=== PATIENT | female | born 1965 | race Caucasian/White ===

== ENCOUNTER 2019-05-03 06:07 | Day surgery (SDC) | payer BC ==
[2019-05-03] MEDS ORDERED: Lactated Ringers 1,000 ML IV SCH (06:30)
[2019-05-03 07:22] LABS: ALBUMIN 3.9 g/dL (3.5-5.0); ALKALINE PHOSPHATASE 73 U/L (38-126); ANION GAP 13.9 MEQ/L (5-15); BLOOD UREA NITROGEN 8 mg/dL (7-17); CHLORIDE 110 mmol/L (98-107); Calcium 9.4 mg/dL (8.4-10.2); Carbon Dioxide 24 mmol/L (22-30); Cholesterol 183 mg/dL (50-200); Creatinine 1 0.53 mg/dL (0.52-1.04); Glucose 100 mg/dL (74-106); HDL CHOLESTEROL 29 mg/dL (40-60); LDL, DIRECT 108 mg/dL (30-100); Potassium 3.9 mmol/L (3.5-5.1); Risk Ratio 6.3; SGOT/AST 24 U/L (14-36); SGPT/ALT 18 U/L (0-35); SODIUM 144 mmol/L (137-145); TRIGLYCERIDE 288 mg/dL (30-150); Total Protein 6.9 g/dL (6.3-8.2)
[2019-05-03] MEDS ORDERED: DIPRIVAN 200 MG/20 ML IV ONE (07:41)
[2019-05-03] MEDS ORDERED: Ketamine HCl 50 MG/ML ONE (07:41)
[2019-05-03 08:56] VITALS: BP 150/95; PULSE 65; O2SAT 97
--- NOTE | 2019-05-03 14:27 | OP ---
SURGERY DATE/TIME: 05/03/2019 0757 PREOPERATIVE DIAGNOSIS: Screening exam. POSTOPERATIVE DIAGNOSIS: Small rectosigmoid polyp and one singular diverticulum in the sigmoid colon. PROCEDURE: Colonoscopy with cold forceps biopsy. SURGEON: Dr. Cervantes. ANESTHESIA: MAC. Medications given by anesthesia department. HISTORY: The patient is a 53 year-old white female presenting now for screening colonoscopy. She was appraised of the risks of the procedure including the risk of perforation, phlebitis, untoward reaction to medication, bleeding and missed lesions. The patient verbalized her understanding and desired to have the procedure performed. DESCRIPTION OF PROCEDURE: The patient was given the medications by the anesthesia department. She had continuous pulse oximetry, ECG monitoring, intermittent blood pressure monitoring and tidal CO2 monitoring during the examination. She was placed in the left lateral decubitus position. A digital rectal examination was performed and revealed normal anal sphincter tone and no masses. The flexible Olympus pediatric colonoscope was used to intubate the rectum. A view of the colon was developed sequentially to the cecum. Upon insertion and withdrawal was noted one singular diverticulum in the sigmoid colon. There was also noted a small polyp in the rectosigmoid colon which was biopsied using cold biopsy technique destroying the lesion. Upon insertion and withdrawal, including a retroflex view in the rectum, no mucosal lesions being encountered the scope was removed from the patient who tolerated the procedure well and was sent back to OP recovery in good condition. The prep was noted to be fair to good.
== END 2019-05-03 09:13 | disposition home or self-care (01) ==
LOC: SDC 06:07
PROVIDERS: ATTEND Family Medicine
DX: Z12.11 Encounter for screening for malignant neoplasm of colon (principal); K63.5 Polyp of colon; D12.8 Benign neoplasm of rectum; Z80.0 Family history of malignant neoplasm of digestive organs; K57.30 Diverticulosis of large intestine without perforation or abscess without bleeding; I10 Essential (primary) hypertension; J44.9 Chronic obstructive pulmonary disease, unspecified; F17.200 Nicotine dependence, unspecified, uncomplicated
CPT/HCPCS: 36415; 80053; 80061; 83721; J2704

== ENCOUNTER 2023-08-14 07:48 | Day surgery (SDC) | payer BC ==
[~2023-08-14 07:48] MED LIST: Sensorcaine 0.25% 10 ML ONE
[2023-08-14] MEDS ORDERED: SUBLIMAZE 100 MCG/2 ML ONE ×3 (08:17→10:29)
[2023-08-14] MEDS ORDERED: Versed 2 MG/2 ML Injection ONE (08:17)
[2023-08-14] MEDS ORDERED: Zemuron 100 MG/10 ML ONE ×2 (08:17→09:42)
[2023-08-14] MEDS ORDERED: DIPRIVAN 200 MG/20 ML IV ONE (08:17)
[2023-08-14] MEDS: Lactated Ringers 1,000 ML IV SCH ×2 (08:30→08:42)
[2023-08-14 08:32] VITALS: RESP 16
[2023-08-14] MEDS ORDERED: MEFOXIN 2 GM PREMIX** 2 GM/50 ML ML IV SCH (09:00)
[2023-08-14 09:21] LABS: ALBUMIN 4.1 g/dL (3.5-5.0); ANION GAP 11.7 MEQ/L (5-15); BILIRUBIN,TOTAL 0.4 mg/dL (0.2-1.3); Calcium 9.3 mg/dL (8.4-10.2); Creatinine 1 0.54 mg/dL (0.52-1.04); EST GLOMERULAR FILTRATION RATE 107.3 ML/MIN; Potassium 4.3 mmol/L (3.5-5.1); Risk Ratio 5.9; Total Protein 7.3 g/dL (6.3-8.2)
[2023-08-14] MEDS ORDERED: Zofran 4 MG/2 ML VIAL ONE (09:48)
[2023-08-14] MEDS ORDERED: BRIDION 200MG/2ML IV ONE (09:48)
[2023-08-14] MEDS ORDERED: Lactated Ringers 1,000 ML IV ONE (09:59)
--- NOTE | 2023-08-14 12:07 | OP ---
SURGERY DATE/TIME: 08/14/202320 PREOPERATIVE DIAGNOSIS: Symptomatic cholelithiasis. POSTOPERATIVE DIAGNOSIS: Symptomatic cholelithiasis. PROCEDURE: Laparoscopic cholecystectomy. SURGEON: Dr. Robert Chung. ANESTHESIA: General endotracheal tube. ESTIMATED BLOOD LOSS: None. DRAINS: None. COMPLICATIONS: None. CONDITION: Stable. INDICATIONS: A patient has symptomatic stone disease. DESCRIPTION OF PROCEDURE AND FINDINGS: Taken to surgery. General anesthetic, routine prep and drape. Veress needle inserted. Opening pressure of -1, insufflating pressure 14. Four - 5's. Good visualization. The patient is moderately obese especially in the upper abdomen. There were a few adhesions against the gallbladder taken down. Infundibulum dissected. [place] of [place] was seen. Cystic duct triply clipped and transected. Cystic artery triply clipped and transected. Clips noted across well approximated with no scissoring. Gallbladder rolled out of gallbladder fossa. Gallbladder delivered through the epigastric port. It was necessary to extract about four stones before it could be pulled out. One stone was slightly bigger. It had been dilated to less than 8 so it was not closed. Hemostasis satisfactory. CO2 exsufflated. Skin closed with 4-0 Vicryl and Steri-Strips. The patient tolerated the procedure satisfactorily.
[2023-08-14 12:08] VITALS: TEMP 97.2; O2SAT 94
[2023-08-14 13:13] VITALS: BP 134/78; PULSE 80
== END 2023-08-14 12:30 | disposition home or self-care (01) ==
LOC: SDC 07:48
PROVIDERS: ATTEND Surgery
DX: K80.20 Calculus of gallbladder without cholecystitis without obstruction (principal); I10 Essential (primary) hypertension; Z79.899 Other long term (current) drug therapy
CPT/HCPCS: 36415; 80053; 80061; 83721; 93005; J0694; J2250; J2405; J2704; J3010

== ENCOUNTER 2024-10-14 11:07 | Emergency (ER) | payer BC, OTHER ==
[2024-10-14 11:34] VITALS: PULSE 64; RESP 18; TEMP 97.7; O2SAT 97
[2024-10-14] MEDS ORDERED: Norflex 60 MG/2 ML ONE (12:08)
[2024-10-14] MEDS ORDERED: TORAdol 30 mg Injection ONE (12:08)
[2024-10-14] MEDS: Norflex 60 MG/2 ML IM ONE (12:10)
[2024-10-14] MEDS: TORAdol 30 mg Injection IM ONE (12:10)
--- NOTE | 2024-10-14 12:54 | ERPHSYRPT ---
- History of Present Illness Time Seen by Provider: 10/14/24 11:43 Source: patient Exam Limitations: no limitations Patient Subjective Stated Complaint: pt here for left sided back pain for a couple days now that radiates down left leg, she states she hurt getting out of shower, no fall, pt has started muscle relaxer and steriods. Triage Nursing Assessment: pt alert, wakled in. occ holding on to left hip, unable to tolerated laying down,resp easy, skin w/d/p. no edema noted Physician History: 59 years old female with history of back surgery L4-L5 in the remote past presented in the ER with sudden onset mid to left low back pain after she was getting out of the bathroom and her left foot slid and she felt a popping sensation in the left lower back 2 days ago. Patient has been prescribed Medrol Dosepak and Flexeril with no significant relief. Patient reports gradually worsening pain in the left lower back and no radiation to the left thigh without numbness or weakness. Pain is reproducible with movements other left hip and is unable to find a comfortable position. Denies any loss of bowel or bladder control. No peritoneal/saddle anesthesia. Patient reports she is still able to walk but it hurts really bad. Allergies/Adverse Reactions: morphine Adverse Reaction (Unknown, Verified 10/14/24 11:19) increases b/p Home Medications: Losartan Potassium 50 mg [Cozaar 50 MG] 100 mg PO DAILY 03/25/19 [History] Bupropion HCl 150 mg Sr [Wellbutrin SR 150 MG] 150 mg PO UD 07/14/23 [History] Metoprolol Succinate 25 mg Xl* [Toprol-Xl 25MG Tablets] 25 mg PO UD 07/14/23 [History] Cyclobenzaprine HCl 10 mg [Cyclobenzaprine 10 MG] 10 mg PO DAILY 10/14/24 [History] methylPREDNISolone [Medrol] 1 ea UD 10/14/24 [History] Hx Tetanus, Diphtheria Vaccination/Date Given: No Hx Influenza Vaccination/Date Given: Yes Hx Pneumococcal Vaccination/Date Given: No Immunizations Up to Date: Yes Travel Risk - International Travel Have you traveled outside of the country in past 3 weeks: No - Emerging Infectious Disease Are you exhibiting symptoms associated with any current EIDs: No - Review of Systems Constitutional: No Symptoms Ears, Nose, & Throat: No Symptoms Respiratory: No Symptoms Cardiac: No Symptoms Abdominal/Gastrointestinal: No Symptoms Genitourinary Symptoms: No Symptoms Musculoskeletal: Back Pain Skin: No Symptoms Neurological: No Symptoms Endocrine: No Symptoms Hematologic/Lymphatic: No Symptoms Immunological/Allergic: No Symptoms - Past Medical History Pertinent Past Medical History: Yes Neurological History: No Pertinent History ENT History: No Pertinent History Cardiac History: Hypertension Respiratory History: Other Endocrine Medical History: No Pertinent History Musculoskeletal History: No Pertinent History GI Medical History: No Pertinent History History: No Pertinent History Psycho-Social History: No Pertinent History Female Reproductive Disorders: No Pertinent History Other Medical History: HAD COVID 08/2021. IS VACCINATED. sleep apnea, rhumatic fever - Past Surgical History Past Surgical History: Yes Neuro Surgical History: No Pertinent History Cardiac: No Pertinent History Respiratory: No Pertinent History Gastrointestinal: Appendectomy Genitourinary: No Pertinent History Musculoskeletal: Orthopedic Surgery, Other Female Surgical History: Hysterectomy, Tubal Ligation Other Surgical History: cyst removed from neck, lumbar back surgery.tennis elbow surgery,discectomy,lymph glad removed from neck - Social History Smoking Status: Current every day smoker How long have you smoked: 40 years Exposure to second hand smoke: Yes Drug Use: none - Social Determinants of Health Will the patient participate in the screening: Yes Do you worry about a steady place to live?: Yes Do you have any problems with any of the following?: No known problems In the past 12 months,have you had to go without utilities?: No Transportation Issues: No Has anyone in your support network made you feel unsafe?: No Have you or anyone in your house had to go w/o enough food: No - Nursing Vital Signs Nursing Vital Signs: Initial Vital Signs Blood Pressure 129/92 10/14/24 11:30 O2 Sat by Pulse Oximetry 95 10/14/24 11:30 Pain Scale Pain Intensity [Left Back] 10 Pain Intensity 10 - Physical Exam General Appearance: no apparent distress Ears, Nose, Throat Exam: moist mucous membranes Neck Exam: normal inspection, non-tender, supple, full range of motion Respiratory Exam: normal breath sounds, lungs clear Cardiovascular Exam: regular rate/rhythm, normal heart sounds Gastrointestinal Exam: soft, normal bowel sounds, No tenderness Back Exam: vertebral tenderness (Lower lumbar), decreased range of motion, muscle spasm, point tenderness Extremity Exam: normal inspection, normal range of motion Neurologic Exam: alert, oriented x 3, cooperative, sensation nml, No motor deficits Skin Exam: normal color SpO2 Interpretation: normal SpO2: 97 O2 Delivery: Room Air Ordered Tests: Active Orders 24 hr Category Date Time Status LUMBAR SPINE W/O [CT] Stat Exams 10/14/24 11:57 Completed Medication Summary Discontinued Medications Generic Name Dose Route Start Last Admin Trade Name Guzman PRN Reason Stop Dose Admin Ketorolac Tromethamine 30 mg 10/14/24 11:56 10/14/24 12:10 Ketorolac Tromethamine 30 Mg/Ml Inj IM 10/14/24 11:57 30 mg STAT ONE Administration Ketorolac Tromethamine Confirm 10/14/24 12:08 Ketorolac Tromethamine 30 Mg/Ml Inj Administered 10/14/24 12:09 Dose 30 mg .ROUTE .STK-MED ONE Orphenadrine Citrate 60 mg 10/14/24 11:56 10/14/24 12:10 Orphenadrine Citrate 60 Mg/2 Ml Vial IM 10/14/24 11:57 60 mg STAT ONE Administration Orphenadrine Citrate Confirm 10/14/24 12:08 Orphenadrine Citrate 60 Mg/2 Ml Vial Administered 10/14/24 12:09 Dose 60 mg .ROUTE .STK-MED ONE - Progress Progress: improved, pain not gone completely Progress Note: 10/14/24 13:50 59 years old is evaluated in the ER for acute left lower back pain with radiation to the left lower extremity. Has no cauda equina symptoms. Negative neuroexam in lower extremities. She is given Toradol and Norflex, on reevaluation feeling better. I have obtained CT lumbar spine which is negative for acute fracture or subluxation. Does have some old changes. I believe patient has low back strain, recommended Robaxin instead of Flexeril as patient is worried about being sleepy after that and will give her pain medication for few days to take as needed. Discussed outpatient follow-up. Also still trip to the worsening needing return to ER which she seems understanding. Stable for discharge. Counseled pt/family regarding: diagnosis, need for follow-up, rad results Medical Desision Making - Diagnostic Testing Diagnostic test were ordered, analyzed, and reviewed by me: Yes Radiological Interpretation: Reviewed by me - Risk of complications The pt has a mod risk of morbidity or mortality based on: Need for prescription drug management - Departure Departure Disposition: Home Clinical Impression: Strain of muscle, fascia and tendon of lower back, initial encounter Condition: Stable Critical Care Time: No Referrals: REYES LAU NP [Primary Care Provider] - Follow up with PCP 1 day Instructions: Low Back Pain (DC) Additional Instructions: Take pain medications as needed. Follow-up with primary care for reevaluation. Return to ER for worsening pain or if develop numbness/weakness of lower extremities/loss of bowel or bladder control/saddle anesthesia. Do not take Flexeril and start taking Robaxin. Prescriptions: Hydrocodone/Acetaminophen [Hydrocodone-Acetamin 5-325 mg] 1 tab PO Q6HPRN PRN 3 Days #12 tablet MDD 4 PRN Reason: Pain Methocarbamol [Robaxin] 750 mg PO Q8HPRN PRN 10 Days #30 tablet PRN Reason: Pain
--- NOTE | 2024-10-14 13:40 | XRAY ---
Indication: Low back pain 2 days. Multiple contiguous axial images obtained through lumbar spine. Sagittal and coronal reformatted images obtained. Comparison: Lumbar radiograph October 25, 2021. Axial images negative for acute fracture, suspicious bony lesions, or spinal canal stenosis. Stable L5-S1 disc space narrowing with mild broad-based disc osteophyte complex and mild right SI joint degenerative changes. Facets symmetric. Sagittal and coronal reformatted images demonstrates stable minimal levoscoliosis centered at L3. No acute compression fracture or subluxation. Visualized noncontrasted soft tissues again demonstrates minimal aortic calcifications and splenic calcified granulomas. Incidental fatty liver. Impression: Again chronic findings L5-S1 degenerative disc disease, right SI joint degenerative changes, levoscoliosis, arteriosclerotic disease, fatty liver, and old granulomatous disease. Remaining CT lumbar spine continues to be negative.
[2024-10-14 14:09] VITALS: BP 117/82
== END 2024-10-14 14:06 | disposition home or self-care (01) ==
LOC: ED 11:07
DX: S39.012A Strain of muscle, fascia and tendon of lower back, initial encounter (principal); W18.2XXA Fall in (into) shower or empty bathtub, initial encounter; Y93.E1 Activity, personal bathing and showering; Y92.002 Bathroom of unspecified non-institutional (private) residence as the place of occurrence of the external cause; I10 Essential (primary) hypertension; Z79.52 Long term (current) use of systemic steroids; Z79.891 Long term (current) use of opiate analgesic; Z79.899 Other long term (current) drug therapy; Z72.0 Tobacco use; Z59.819 Housing instability, housed unspecified
CPT/HCPCS: 72131; 96372; 99284; J1885; J2360

== ENCOUNTER 2024-11-23 07:14 | Day surgery (SDC) | payer BC ==
[2024-11-23] MEDS ORDERED: Lactated Ringers 1,000 ML IV ONE (07:48)
[2024-11-23] MEDS: TETRACAINE 0.5% STERI-UNIT SOL OP ONE ×2 (08:01→08:02)
[2024-11-23] MEDS: Lactated Ringers 1,000 ML IV SCH (08:01)
[2024-11-23] MEDS: Ak-Dilate OPHTHALMIC*** 0.71 ML, Cyclogyl 1% OPHTH SOL 0.71 ML, GATIFLOXACIN 0.5% OPHTH... OP SCH (08:02)
[2024-11-23] MEDS ORDERED: TRIAMCINOLONE 15 MG/ML INJ INTRAOP NR (09:15)
[2024-11-23] MEDS ORDERED: Epinephrine Preservative Free 1 MG/ML INTRAOP NR (09:15)
[2024-11-23] MEDS ORDERED: DEXMEDETOMIDINE 80 MCG/20ML-NS IV NR (09:15)
[2024-11-23] MEDS ORDERED: BETADINE 5% OPHTHALMIC 30 ML OP NR (09:15)
[2024-11-23] MEDS ORDERED: VIGAMOX/BSS 0.15% SYR IO NR (09:15)
[2024-11-23] MEDS ORDERED: Zofran 4 MG/2 ML VIAL IV PRN (09:30)
[2024-11-23] MEDS ORDERED: propofoL IV ONE ×2 (09:37→10:12)
[2024-11-23] MEDS ORDERED: SUBLIMAZE 100 MCG/2 ML ONE (09:38)
[2024-11-23] MEDS ORDERED: Versed 2 MG/2 ML Injection ONE (09:38)
[2024-11-23] MEDS ORDERED: MIOSTAT IO ONE (10:00)
[2024-11-23] MEDS: ACETAZOLAMIDE 250 MG TABLET PO ONE (10:45)
[2024-11-23 10:58] VITALS: BP 112/80; PULSE 77; RESP 18; TEMP 97.7; O2SAT 97
== END 2024-11-23 11:23 | disposition home or self-care (01) ==
LOC: SDC 07:14
PROVIDERS: ATTEND Ophthalmology
DX: H25.812 Combined forms of age-related cataract, left eye (principal)
CPT/HCPCS: C1780; J0171; J2250; J2704; J3010; A9270-GY

== ENCOUNTER 2024-12-28 06:29 | Day surgery (SDC) | payer BC ==
[2024-12-28] MEDS ORDERED: Lactated Ringers 1,000 ML IV ONE (06:49)
[2024-12-28] MEDS: Ak-Dilate OPHTHALMIC*** 0.71 ML, Cyclogyl 1% OPHTH SOL 0.71 ML, GATIFLOXACIN 0.5% OPHTH... OP SCH (06:58)
[2024-12-28] MEDS: TETRACAINE 0.5% STERI-UNIT SOL OP ONE ×2 (06:58→06:59)
[2024-12-28] MEDS: Lactated Ringers 1,000 ML IV SCH (06:58)
[2024-12-28] MEDS ORDERED: DEXMEDETOMIDINE 80 MCG/20ML-NS IV NR (08:30)
[2024-12-28] MEDS ORDERED: TRIAMCINOLONE 15 MG/ML INJ INTRAOP NR (08:30)
[2024-12-28] MEDS ORDERED: VIGAMOX/BSS 0.15% SYR IO NR (08:30)
[2024-12-28] MEDS ORDERED: BETADINE 5% OPHTHALMIC 30 ML OP NR (08:30)
[2024-12-28] MEDS ORDERED: Epinephrine Preservative Free 1 MG/ML INTRAOP NR (08:30)
[2024-12-28] MEDS ORDERED: Zofran 4 MG/2 ML VIAL IV PRN (08:45)
[2024-12-28] MEDS ORDERED: propofoL IV ONE ×2 (09:32→09:45)
[2024-12-28 10:01] VITALS: RESP 20
[2024-12-28 10:02] VITALS: O2SAT 96
[2024-12-28] MEDS: ACETAZOLAMIDE 250 MG TABLET PO ONE (10:07)
[2024-12-28 10:18] VITALS: BP 135/81; PULSE 74; TEMP 97.6
== END 2024-12-28 10:24 | disposition home or self-care (01) ==
LOC: SDC 06:29
PROVIDERS: ATTEND Ophthalmology
DX: H25.811 Combined forms of age-related cataract, right eye (principal)
CPT/HCPCS: C1780; J0171; J2704; A9270-GY